=== PATIENT | male | born 1990 | race Caucasian/White ===

== ENCOUNTER 2024-08-24 14:45 | Emergency (ER) | payer OTHER, SELFPAY ==
[2024-08-24 14:50] VITALS: BP 145/91
--- NOTE | 2024-08-24 15:25 | ED.GENMED ---
History of Present Illness
General
Chief Complaint: Head Injury
Source: patient
Exam Limitations: none
Time Seen by Provider: 08/24/24 15:19
History of Present Illness
History of Present Illness:
See MDM
Past History
Past History
ED Past Medical History: None
ED Past Surgical History: None
Social History
Tobacco: Smoker
Alcohol: Occasional
Employment: Employed
Phy Exam
Physical Exam
Physical Exam:
See MDM
Course
Orders/Labs/Results
Orders:
Orders
08/24/24 15:23
CT Facial Bones W/o Iv Contras Urgent
Comment:
Reason For Exam: head injury, Left jaw pain
CT Head W/o Iv Contrast Urgent
Comment:
Reason For Exam: left side head injury, headache
Ibuprofen [Motrin] 600 mg PO NOW STA
Vital Signs
Initial and Last Documented VS:
Initial Vital Signs
Temp Pulse Resp BP Pulse Ox
98.2 F 82 16 145/91 98
08/24/24 14:50 08/24/24 14:50 08/24/24 14:50 08/24/24 14:50 08/24/24 14:50
Last Documented Vital Signs
Temp Pulse Resp BP Pulse Ox
98.2 F 82 16 145/91 98
08/24/24 14:50 08/24/24 14:50 08/24/24 14:50 08/24/24 14:50 08/24/24 14:50
Procedures
Laceration Closure
Left Anterior Lateral Jaw:
Status of Wound: clean
Size of Wound in cm: 2
Description of Wound Edges: ragged
Preparation: cleaned with soap & water
Revision/Debridement: routine- no revision
Type of Closure: Dermabond-skin glue
MDM/Problems Addressed
Differential Diagnosis Includes:
HPI and MDM Narrative:
34-year-old male presenting with left jaw pain. Patient was at work and a large piece of wood ricocheted off the pavement and hit him in the left side of the face. He complains of a headache although it is somewhat improving. On exam, he does
have an abrasion and superficial laceration to the left side of his cheek overlying the TMJ. Given the injury, will obtain CT head and CT jaw. He states his tetanus is up-to-date.
Physical exam
General: Well appearing and non-toxic
HEENT: protecting airway
Neck: supple
CV: No evidence of cyanosis
Resp: No accessory muscle use
Abd: Non-distended
Extremities: No deformities
Neuro: alert
Psych: Normal affect
Skin: Superficial laceration and abrasion to left jaw overlying TMJ
Problems Addressed including Acute and Chronic Conditions affecting care:
1. Head and jaw injury
Acuity: acute
Prognosis: stable
Details: Will give Motrin and obtain CT head and
Updates
CT head negative. No facial fractures noted.
Differential Diagnosis (but not limited to): Concussion, jaw contusion, jaw fracture
Testing considered: CT neck but no cervical tenderness noted
Drug therapy (if applicable): OTC meds, please see d/c instruction regarding Rx drugs
Amount and/or Complexity of Data Reviewed
Clinical info obtained from: Patient
External data reviewed: N/A
Labs I independently reviewed (but not limited to): N/A
Radiology: the CT scan was personally and independently reviewed. In addition, official CT report reviewed.
Pulse Ox: not hypoxic
EKG independently reviewed: N/A
Dry House Tender: N/A
Critical Care: N/A
Risk of Complication:
Social Determinants of health: Good social support
Discussed with other providers: N/A
Escalation of Care includes Admit/Obs: After being observed in the Emergency Department, pt stable for discharge.
Occasional wrong word or 'sound a like' substitutions may have occurred due to the inherent limitations of voice recognition software. Read the chart carefully and recognize, using context, where substitutions have occurred.
*Critical Care Note
Total Time (30-74mins, 75-104mins- exclusive of procedures): Not Applicable
ED Attending Note
-
Portions of this chart may have been created with voice recognition software.� Occasional wrong word or��sound alike� substitutions may have occurred due to the inherent limitations of voice recognition software.
Discharge Plan
Departure
Patient Disposition: Home (Routine Discharge)
Date of Disposition: 08/24/24
Time of Disposition: 16:11
Patient with high blood pressure during this ER visit?: Yes
Discharge Problem:
Head injury
Instructions: Head Injury in Adults (DC), BLOOD PRESSURE
Referrals:
UNKNOWN - PT DOES,NOT KNOW [Family Provider] -
Stand Alone Forms: Return to Work
Activity Restrictions/Additional Instructions:
Please return for any worsening symptoms.
You may return at any time if you have further concerns.
Please follow up with your doctor at the first available appointment, preferably this week.
Thank you for choosing [facility].
Interventions
Interventions:
*Risk Screen - Suicide Last Done: 08/24/24 14:50
*General Assessment Last Done: 08/24/24 15:11
*Neglect/Abuse Screening Last Done: 08/24/24 14:50
*ED- Fall Risk Assessment Last Done: 08/24/24 15:11
*ED COVID-19 Vaccine History Last Done: 08/24/24 15:11
ED- Neurological Assessment Last Done: 08/24/24 15:11
ED-Skin Assessment Last Done: 08/24/24 15:11
Discharge Date and Time
Print Language: GEORGIAN
[2024-08-24] MEDS: MOTRIN 600 MG PO (15:31)
== END 2024-08-24 16:33 | disposition home or self-care (01) ==
LOC: EMR 14:45
PROVIDERS: EMERGENCY PHYSICIAN Student in an Organized Health Care Education/Training Program
DX: S01.81XA Laceration without foreign body of other part of head, initial encounter (principal); W22.8XXA Striking against or struck by other objects, initial encounter; Y99.0 Civilian activity done for income or pay
CPT/HCPCS: 12011; 99284; 70450; 70486